=== PATIENT | male | born 2000 | race Two or more races ===

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

== ENCOUNTER 2019-01-07 11:27 | Emergency (ER) | payer OTHER, MEDICAID ==
[2019-01-07] MEDS ORDERED: METHYLPREDNISOLONE INJ 125 MG/2 ML SDV IV ONE (12:55)
[2019-01-07] MEDS ORDERED: FAMOTIDINE INJ/PF 20 MG/2 ML SDV IV ONE (12:55)
[2019-01-07] MEDS ORDERED: DIPHENHYDRAMINE HCL 50 MG/ML VIAL IV ONE (12:55)
[2019-01-07 15:08] VITALS: BP 119/62
--- NOTE | 2019-01-07 15:12 | ER Document Report ---
HPI - HPI Time Seen by Provider: 01/07/19 12:46 Pain Level: 2 Notes: Patient is an otherwise healthy 19-year-old male presented to the emergency department after being stung by a bee today. He reports he was stung to the left thigh area. He reports anaphylaxis to bee stings. He states he used his EpiPen immediately. Patient does report some mild itchiness and swelling in his throat but is speaking in full and complete sentences and is able to swallow without difficulty. Patient denies any rash or hives. - DERM Skin Color: Normal, [place] Past Medical History - Social History Smoking Status: Current Every Day Smoker Frequency of alcohol use: None Drug Abuse: None Family History: Reviewed & Not Pertinent, DM, Hypertension Patient has suicidal ideation: No Patient has homicidal ideation: No Pulmonary Medical History: Reports: Hx Asthma Neurological Medical History: Reports: Hx Migraine Renal/ Medical History: Denies: Hx Peritoneal Dialysis Psychiatric Medical History: Reports: Hx Anxiety, Hx Attention Deficit Hyperactivity Disorder, Hx Bipolar Disorder, Hx Dementia, Hx Depression - ptsd, Hx Post Traumatic Stress Disorder Past Surgical History: Reports: Hx Tonsillectomy - Immunizations Immunizations up to date: Yes Hx Diphtheria, Pertussis, Tetanus Vaccination: Yes Vertical Provider Document - CONSTITUTIONAL Notes: PHYSICAL EXAMINATION: GENERAL: Well-appearing, well-nourished and in no acute distress. HEAD: Atraumatic, normocephalic. EYES: Pupils equal round and reactive to light, extraocular movements intact, sclera anicteric, conjunctiva are normal. ENT: Nares patent, oropharynx clear without exudates. Moist mucous membranes. NECK: Normal range of motion, supple without lymphadenopathy LUNGS: Breath sounds clear to auscultation bilaterally and equal. No wheezes rales or rhonchi. HEART: Regular rate and rhythm without murmurs ABDOMEN: Soft, nontender, nondistended abdomen. No guarding, no rebound. No masses appreciated. Musculoskeletal: Normal range of motion, no pitting or edema. No cyanosis. NEUROLOGICAL: Cranial nerves grossly intact. Normal speech, normal gait. Normal sensory, motor exams PSYCH: Normal mood, normal affect. SKIN: Warm, Dry, normal turgor, no rashes or lesions noted. - INFECTION CONTROL TRAVEL OUTSIDE OF THE [place] IN LAST 30 DAYS: No Course - Re-evaluation Re-evalutation: Patient appears well, nontoxic, no hives noted, patient speaking in full complete sentences and swallowing without difficulty. Patient injected his epinephrine at 11 AM. I will treat him with Pepcid, Solu-Medrol and Benadryl. He will be monitored for a total of 4 hours from the time of the epinephrine injection which was at 11:00 this morning. He will be discharged at 3 PM if he remains asymptomatic. Patient remained in some a symptomatic while in the emergency department. He does not have any hives or wheezes. He continues to feel well and is swallowing without difficulty with a patent airway. Patient will be discharged home at this time, prescriptions written for prednisone, Pepcid and epinephrine pens. Patient's family member at bedside is present in both he and the family member verbalized understanding and agreement with plan. - Vital Signs Vital signs: Temp Pulse Resp BP Pulse Ox 97.8 F 65 16 119/62 97 01/07/19 15:06 01/07/19 15:06 01/07/19 15:06 01/07/19 15:06 01/07/19 15:06 Discharge - Discharge Clinical Impression: Allergic reaction Qualifiers: Encounter type: initial encounter Qualified Code(s): T78.40XA - Allergy, unspecified, initial encounter Condition: Stable Disposition: HOME, SELF-CARE Additional Instructions: Acute Allergic Reaction Your symptoms are due to an allergic reaction. Allergy can cause hives, swelling of the hands, feet, and face, hoarseness, and difficulty swallowing or breathing. It may be due to exposure to medication, animal dander, foods, infection, or insect bites. Medication is a common cause, even when prior use of this same medication caused no problems. Acute treatment may include adrenalin and antihistamines. Usually, the specific allergic agent can't be identified unless repeated episodes occur. Home treatment includes the following: (1) Stop any suspicious medications. This will be discussed with you. (2) Oral antihistamines for the next four to five days. Example, diphenhydramine (Benadryl) every four hours. (3) You may also use cimetidine (Tagamet), ranitidine (Zantac), or famotidine (Pepcid) every four hours if diphenhydramine is not controlling itching and hives. (4) Avoid aspirin until the hives completely disappear. (5) Avoid hot baths or showers until the hives are completely gone. Call the doctor if faintness, difficulty swallowing, tightness in the chest, or wheezing occurs. Take medications as prescribed. Be sure to continue to carry an EpiPen with you at all times. If you have to use the EpiPen please come to the emergency department as discussed. Prescriptions: Epinephrine [Epipen 2-Fahad] 0.3 mg IM ONCE PRN #1 packet PRN Reason: Famotidine [Pepcid 40 mg Tablet] 40 mg PO BID #10 tablet Prednisone [Deltasone 20 mg Tablet] 3 tab PO DAILY 5 Days #15 tablet Forms: Return to Work Referrals: SATISH MANJARREZ DO [Primary Care Provider] - Follow up as needed
== END 2019-01-07 15:32 | disposition home or self-care (01) ==
LOC: ER 11:27
DX: L29.8 Other pruritus (principal); R22.1 Localized swelling, mass and lump, neck; T78.40XA Allergy, unspecified, initial encounter; T63.441A Toxic effect of venom of bees, accidental (unintentional), initial encounter; X58.XXXA Exposure to other specified factors, initial encounter; Z91.030 Bee allergy status; F17.200 Nicotine dependence, unspecified, uncomplicated
CPT/HCPCS: 99282; 96374; 96375; J1200; J2930; S0028

== ENCOUNTER 2019-02-02 05:42 | Day surgery (SDC) | payer MEDICAID, OTHER ==
[~2019-02-02 05:42] MED LIST: ACETAMINOPHEN 325 MG TABLET ONE; ACETAMINOPHEN 325 MG TABLET PO PRN; IBUPROFEN 800 MG in NORMAL SALINE 250 ML IV PRN; LACTATED RINGERS 1000 ML IV PRN; LIDOCAINE 0.5% INJ-PF (5 MG/ML) 50 ML SDV SUBCUT PRN; PREGABALIN 50 MG CAPSULE ONE; PREGABALIN 50 MG CAPSULE PO PRN
[2019-02-02] MEDS ORDERED: MIDAZOLAM 2 MG/2 ML INJ ONE (07:18)
[2019-02-02] MEDS ORDERED: HYDROMORPHONE HCL INJ/PF 2 MG/ML AMPULE ONE (07:18)
[2019-02-02] MEDS ORDERED: FENTANYL CITRATE INJ/PF 250 MCG/5 ML AMPULE ONE (07:18)
[2019-02-02] MEDS ORDERED: PROPOFOL INJ 200 MG/20 ML VIAL IV ONE (07:18)
[2019-02-02] MEDS ORDERED: LIDOCAINE 2% INJ-PF (100 MG/5 ML) SYRINGE ONE (07:19)
[2019-02-02] MEDS ORDERED: BUPIVACAINE HCL 0.25 % INJ/PF (2.5 MG/1 ML) 30 ML VIAL ONE (07:23)
[2019-02-02] MEDS ORDERED: CEFAZOLIN INJ 1 GM VIAL ONE (07:28)
[2019-02-02] MEDS ORDERED: MEPERIDINE HCL/PF INJ 25 MG/1 ML DISP.SYRIN IV PRN (08:23)
[2019-02-02] MEDS ORDERED: FENTANYL CITRATE INJ/PF 100 MCG/2 ML AMPUL IV PRN ×3 (08:23)
[2019-02-02] MEDS ORDERED: MORPHINE SULFATE 10 MG/ML INJ IV PRN (08:23)
[2019-02-02] MEDS ORDERED: PROMETHAZINE HCL INJ 25 MG/1 ML VIAL IV PRN ×2 (08:23)
[2019-02-02] MEDS ORDERED: DIPHENHYDRAMINE HCL 50 MG/ML VIAL IV PRN (08:23)
--- NOTE | 2019-02-02 10:22 | Discharge Summary ---
Discharge Summary (SDC) - Discharge Final Diagnosis: Bilateral symptomatic inguinal hernias. Date of Surgery: 02/02/19 Discharge Date: 02/02/19 Condition: Stable Treatment or Instructions: Discharge home. Diet as tolerated. Activity: No lifting greater than 10 pounds x 4 weeks. Follow-up with me in 7 to 10 days. Okay to shower on . No tub baths or swimming pools x2 weeks. [place] 5/325 mg p.o. every 6 hours as needed for pain. Ibuprofen 800 mg p.o. 3 times daily with meals. Referrals: SATISH MANJARREZ DO [Primary Care Provider] - Discharge Diet: As Tolerated Respiratory Treatments at Home: Deep Breathing/Coughing, Incentive Spirometer Discharge Activity: No Lifting Over 10 Pounds, No Lifting/Push/Pulling Home Care Assistance: None Needed Report the Following to Your Physician Immediately: Shortness of Breath, Nausea, Vomiting, Increase in Pain, Fever over 101 Degrees, Unusual Bleeding, Redness
[2019-02-02] MEDS ORDERED: HYDROCODONE/ACETAMINOPHEN 5-325 MG TABLET PO PRN (10:24)
--- NOTE | 2019-02-02 10:28 | Operative Report ---
Nonrecallable Operative Report DATE OF SURGERY: 02/02/19 PREOPERATIVE DIAGNOSIS: Bilateral symptomatic inguinal hernias POSTOPERATIVE DIAGNOSIS: Bilateral symptomatic indirect inguinal hernias. OPERATION: Robot-assisted laparoscopic bilateral inguinal hernia repair with darion downs. SURGEON: NINFA TRAN TESTER/LIFT TRUCKER: NINI SWEET ANESTHESIA: GA TISSUE REMOVED OR ALTERED: None COMPLICATIONS: None apparent ESTIMATED BLOOD LOSS: Minimal PROCEDURE: Drains/implants: Right and left large 3 DMax inguinal hernia mesh. Procedure in detail: After informed consent was obtained, the patient was brought to the operating room and laid in the supine position. The area of the abdomen was prepped and draped in a normal sterile fashion. A supraumbilical incision was created with a 15 blade scalpel. Dissection was carried through the subcutaneous tissue to the abdominal wall. The linea alba fascia was incised sharply, the abdomen was entered sharply. The balloon trocar was inserted, and pneumoperitoneum was achieved. Two 8 mm robotic trochars were placed in the right and left lateral abdominal wall. The robot was then brought over the patient and docked appropriately. I then assumed my position at the surgeon's console. Attention was turned to the right groin. A preperitoneal dissection was undertaken. The peritoneum was incised 3 cm superior to the large right inguinal hernia defect. The preperitoneal dissection was undertaken using sharp dissection, blunt dissection, and electrocautery. The hernia sac was freed from the cord structures, taking great care not to injure the cord structures. Once the hernia sac was freed, it was everted. Next, a right-sided 3 DMax inguinal hernia mesh was placed into the preperitoneal space. It was sutured to the abdominal wall medially and superiorly using 2-0 Vicryl suture. Once this was completed, attention was turned to the left side. The left groin was opened in similar fashion. The peritoneum was scored 3 cm superior to the small left indirect inguinal hernia defect. A preperitoneal dissection was undertaken using sharp dissection, blunt dissection, and electrocautery. The hernia sac was freed from the cord structures. This was done with great care, so as not to injure the cord structures. Next a large le ft-sided 3 DMax inguinal hernia mesh was placed into the preperitoneal space. It was sutured medially and superiorly, using 2-0 Vicryl suture. Next the peritoneum was closed bilaterally using 2-0 V Lock Suture in simple running fashion. The repairs were then inspected. They were found to be in good order. Next, the robot was undocked, and I scrubbed back into the case. The trochars were removed, and pneumoperitoneum was relieved. The supraumbilical fascia was closed using 0 Vicryl suture in [id number] fashion. The overlying skin was closed using 4-0 Vicryl Rapide suture in subcuticular fashion. Dressings were placed, and the procedure was concluded. All sponge, instrument, and needle counts were correct x2. Condition: Stable. Nini Sweet PA-C was scrubbed and present the entirety of the procedure. She assisted with all portions of the procedure including placement of the trochars, opening of the abdomen, docking of the robot, exchanging of the robotic instruments, undocking of the robot, closure of the fascia, and closure of the skin.
[2019-02-02] MEDS ORDERED: FENTANYL CITRATE INJ/PF 100 MCG/2 ML AMPUL ONE (10:41)
[2019-02-02] MEDS ORDERED: HYDROCODONE/ACETAMINOPHEN 5-325 MG TABLET ONE (11:26)
[2019-02-02] MEDS ORDERED: IBUPROFEN 800 MG TABLET PO SCH (12:00)
[2019-02-02 12:36] VITALS: BP 119/78
[2019-02-02] MEDS ORDERED: ONDANSETRON HCL INJ/PF 4 MG/2 ML SDV ONE (13:56)
[2019-02-02] MEDS ORDERED: GLYCOPYRROLATE 1 MG/5 ML VIAL ONE (13:56)
[2019-02-02] MEDS ORDERED: SUCCINYLCHOLINE CHLORIDE INJ 200 MG/10 ML VIAL ONE (13:56)
[2019-02-02] MEDS ORDERED: ROCURONIUM BROMIDE INJ 50 MG/5 ML VIAL IV ONE (13:56)
[2019-02-02] MEDS ORDERED: DEXAMETHASONE SOD PHOSPHATE INJ 4 MG/1 ML VIAL ONE (13:56)
== END 2019-02-02 12:15 | disposition home or self-care (01) ==
LOC: OROUT 05:42
PROVIDERS: ATTEND Surgery
DX: K40.20 Bilateral inguinal hernia, without obstruction or gangrene, not specified as recurrent (principal); J45.909 Unspecified asthma, uncomplicated; Z79.899 Other long term (current) drug therapy
CPT/HCPCS: 49650; S2900; 36415; 840; 86850; 86900; 86901; C1781; J0330; J0690; J1100; J1170; J1741; J2001; J2250; J2405; J2704; J3010; J3490; J7050

== ENCOUNTER 2019-03-31 17:35 | Emergency (ER) | payer MEDICAID ==
--- NOTE | 2019-03-31 19:53 | RADIOLOGY REPORT (SQ) ---
EXAM DESCRIPTION: CHEST 2 VIEWS COMPLETED DATE/TIME: 03/31/2019 7:35 pm REASON FOR STUDY: cough, SOB for one month COMPARISON: 09/11/2013 EXAM PARAMETERS: NUMBER OF VIEWS: two views TECHNIQUE: Digital Frontal and Lateral radiographic views of the chest acquired. RADIATION DOSE: NA LIMITATIONS: none FINDINGS: LUNGS AND PLEURA: No opacities, masses or pneumothorax. No pleural effusion. MEDIASTINUM AND HILAR STRUCTURES: No masses or contour abnormalities. HEART AND VASCULAR STRUCTURES: Heart normal size. No evidence for failure. BONES: No acute findings. HARDWARE: None in the chest. OTHER: No other significant finding. IMPRESSION: NO ACUTE RADIOGRAPHIC FINDING IN THE CHEST. TECHNICAL DOCUMENTATION: JOB ID: [id number] [employer]- All Rights Reserved Reading location - IP/workstation name: [email or web address]
--- NOTE | 2019-03-31 20:33 | ER Document Report ---
ED Medical Screen (RME) - General Chief Complaint: Shortness Of Breath Stated Complaint: SHORTNESS OF BREATH Time Seen by Provider: 03/31/19 20:26 Primary Care Provider: SATISH MANJARREZ DO [Primary Care Provider] - Follow up as needed TRAVEL OUTSIDE OF THE [place] IN LAST 30 DAYS: No - HPI Notes: 03/31/19 20:31 19 year old male to the ED with C/O palpitations, SOB, feeling like his heart is stopping off and on over the past month. Sometime he feels like his heart is going to pump out of his chest. Denies fevers, chills, wheezing, cough. Is taking Waggoner and his last Waggoner level one month ago was normal. He has not had a change in his dosage. I performed a medical screening exam on the patient and have determined he needs further assessment with lab work, EKG, and chest XR as well as further management by main side provider. - Related Data Allergies/Adverse Reactions: escitalopram oxalate [From [email or web address]] Adverse Reaction (Verified 02/02/19 06:26) bee stings Allergy (Uncoded 02/01/19 10:23) wasps Allergy (Uncoded 02/01/19 10:23) Past Medical History - Past Medical History Cardiac Medical History: Denies: Hx Coronary Artery Disease, Hx Heart Attack, Hx Hypertension Pulmonary Medical History: Reports: Hx Asthma Denies: Hx Bronchitis, Hx COPD - proair prn, Hx Pneumonia Neurological Medical History: Reports: Hx Migraine. Denies: Hx Cerebrovascular Accident, Hx Seizures Renal/ Medical History: Denies: Hx Peritoneal Dialysis Musculoskeltal Medical History: Denies Hx Arthritis Psychiatric Medical History: Reports: Hx Anxiety, Hx Attention Deficit Hyperactivity Disorder, Hx Bipolar Disorder, Hx Dementia, Hx Depression - ptsd, Hx Post Traumatic Stress Disorder Past Surgical History: Reports: Hx Tonsillectomy - Immunizations Immunizations up to date: Yes Hx Diphtheria, Pertussis, Tetanus Vaccination: Yes Physical Exam - Vital signs Vitals: Temp Pulse Resp BP Pulse Ox 97.7 F 95 18 122/72 98 03/31/19 17:48 03/31/19 17:48 03/31/19 17:48 03/31/19 17:48 03/31/19 17:48 Course - Vital Signs Vital signs: Temp Pulse Resp BP Pulse Ox 97.7 F 95 18 122/72 98 03/31/19 17:48 03/31/19 17:48 03/31/19 17:48 03/31/19 17:48 03/31/19 17:48 Doctor's Discharge - Discharge Referrals: SATISH MANJARREZ DO [Primary Care Provider] - Follow up as needed
--- NOTE | 2019-03-31 21:55 | EKG REPORT ---
SEVERITY:- NORMAL ECG - SINUS RHYTHM : Confirmed by: Kaiser Anderson MD 31-Mar-2019 21:54:29
[2019-03-31 23:31] LABS: ABSOLUTE BASOPHILS # (AUTO) 0.1 10^3/uL (0.0-0.2); ABSOLUTE EOSINOPHILS # (AUTO) 0.6 10^3/uL (0.0-0.6); ABSOLUTE LYMPHOCYTES (AUTO) 2.4 10^3/uL (0.5-4.7); ABSOLUTE MONOCYTES (AUTO) 0.7 10^3/uL (0.1-1.4); ABSOLUTE NEUT (AUTO) 5.9 10^3/uL (1.7-8.2); EOSINOPHILS % (AUTO) 6.4 % (0-6); HEMOGLOBIN 15.3 g/dL (13.5-17.0); LYMPHOCYTES % (AUTO) 24.4 % (13-45); MEAN CORPUSCULAR HEMOGLOBIN 31.5 pg (27.0-33.4); MEAN CORPUSCULAR VOLUME 93 fl (80-97); MONOCYTES % (AUTO) 7.6 % (3-13); PLATELET COUNT 217 10^3/uL (150-450); RED BLOOD COUNT 4.85 10^6/uL (4.35-5.55); RED CELL DISTRIBUTION WIDTH 13.1 % (11.5-14.0); SEGMENTED NEUTROPHILS % (AUTO) 60.6 % (42-78); TOTAL CELLS COUNTED % (AUTO) 100 %; WHITE BLOOD COUNT 9.7 10^3/uL (4.0-10.5)
[2019-03-31 23:44] LABS: ALBUMIN 4.6 g/dL (3.5-5.0); ALKALINE PHOSPHATASE 70 U/L (38-126); ANION GAP 12 (5-19); ASPARTATE AMINO TRANSFERASE 21 U/L (17-59); BILIRUBIN,DIRECT 0.2 mg/dL (0.0-0.4); BILIRUBIN,TOTAL 0.3 mg/dL (0.2-1.3); BLOOD UREA NITROGEN 11 mg/dL (7-20); CALCIUM 9.9 mg/dL (8.4-10.2); CARBON DIOXIDE 20 mmol/L (22-30); CHLORIDE 106 mmol/L (98-107); GLUCOSE 104 mg/dL (75-110); LITHIUM 0.8 mEq/L (0.6-1.2); POTASSIUM 3.9 mmol/L (3.6-5.0); TOTAL PROTEIN 7.6 g/dL (6.3-8.2)
--- NOTE | 2019-04-01 00:30 | ER Document Report ---
ED General - General Chief Complaint: Shortness Of Breath Stated Complaint: SHORTNESS OF BREATH Time Seen by Provider: 03/31/19 20:26 Primary Care Provider: SATISH MANJARREZ DO [Primary Care Provider] - Follow up as needed (Follow-up in 1 week if symptoms are not improving with medications provided) TRAVEL OUTSIDE OF THE [place] IN LAST 30 DAYS: No - HPI Notes: Patient presents with feeling short of breath with walking and exercise. He has several psych issues but denies any history of any cardiac issues. He does have a history of asthma as a child but does not use any albuterol. No recent cough congestion or fevers. - Related Data Allergies/Adverse Reactions: escitalopram oxalate [From [employer]] Adverse Reaction (Verified 02/02/19 06:26) bee stings Allergy (Uncoded 02/01/19 10:23) wasps Allergy (Uncoded 02/01/19 10:23) Past Medical History - Social History Smoking Status: Unknown if Ever Smoked Family History: Reviewed & Not Pertinent, DM, Hypertension Patient has suicidal ideation: No Patient has homicidal ideation: No - Past Medical History Cardiac Medical History: Denies: Hx Coronary Artery Disease, Hx Heart Attack, Hx Hypertension Pulmonary Medical History: Reports: Hx Asthma Denies: Hx Bronchitis, Hx COPD - proair prn, Hx Pneumonia Neurological Medical History: Reports: Hx Migraine. Denies: Hx Cerebrovascular Accident, Hx Seizures Renal/ Medical History: Denies: Hx Peritoneal Dialysis Musculoskeletal Medical History: Denies Hx Arthritis Psychiatric Medical History: Reports: Hx Anxiety, Hx Attention Deficit Hyperactivity Disorder, Hx Bipolar Disorder, Hx Dementia, Hx Depression - ptsd, Hx Post Traumatic Stress Disorder Past Surgical History: Reports: Hx Tonsillectomy - Immunizations Immunizations up to date: Yes Hx Diphtheria, Pertussis, Tetanus Vaccination: Yes Review of Systems - Review of Systems Constitutional: No symptoms reported EENT: No symptoms reported Cardiovascular: No symptoms reported Respiratory: See HPI Gastrointestinal: No symptoms reported Genitourinary: No symptoms reported Male Genitourinary: No symptoms reported Musculoskeletal: No symptoms reported Skin: No symptoms reported Hematologic/Lymphatic: No symptoms reported Neurological/Psychological: No symptoms reported Physical Exam - Vital signs Vitals: Temp Pulse Resp BP Pulse Ox 97.7 F 95 18 122/72 98 03/31/19 17:48 03/31/19 17:48 03/31/19 17:48 03/31/19 17:48 03/31/19 17:48 - General General appearance: Appears well, Alert - HEENT Head: Normocephalic, Atraumatic Eyes: Normal Conjunctiva: Normal Cornea: Normal Extraocular movements intact: Yes Pupils: PERRL - Respiratory Respiratory status: No respiratory distress Chest status: Nontender Breath sounds: Normal Chest palpation: Normal - Cardiovascular Rhythm: Regular Heart sounds: Normal auscultation Murmur: No - Abdominal Inspection: Normal Distension: No distension Bowel sounds: Normal Tenderness: Nontender Course - Re-evaluation Re-evalutation: 04/01/19 00:28 Labs within normal limits are nonsignificant with no concerning findings on EKG chest x-ray shows no concerning or acute findings. Patient does have history of asthma as a child does not use albuterol puffer will provide puffer tonight they are to use this when he feels short time with walking or exertion. If his symptoms are not improving with this and he is to follow-up with his primary care doctor for reevaluation. - Vital Signs Vital signs: Temp Pulse Resp BP Pulse Ox 97.7 F 95 18 122/72 98 03/31/19 17:48 03/31/19 17:48 03/31/19 17:48 03/31/19 17:48 03/31/19 17:48 - Laboratory Result Diagrams: 03/31/19 23:17 03/31/19 23:17 Laboratory results interpreted by me: 03/31/19 03/31/19 23:17 23:17 Eos % (Auto) 6.4 H Carbon Dioxide 20 L - Diagnostic Test Radiology reviewed: Reports reviewed - EKG Interpretation by Pr EKG shows normal: Sinus rhythm Rate: Normal Rhythm: NSR - Normal axis and intervals no concerning ST depressions or elevations Discharge - Discharge Clinical Impression: Shortness of breath Condition: Good Disposition: HOME, SELF-CARE Instructions: Asthma ([facility]) Prescriptions: Albuterol Sulfate [Proair HFA Inhalation Aerosol 8.5 gm MDI] 2 puff IH Q4H PRN #1 mdi PRN Reason: Referrals: SATISH MANJARREZ DO [Primary Care Provider] - Follow up as needed (Follow-up in 1 week if symptoms are not improving with medications provided)
[2019-04-01 00:37] VITALS: BP 127/66
== END 2019-04-01 00:47 | disposition home or self-care (01) ==
LOC: ER 17:35
DX: R06.02 Shortness of breath (principal); J45.909 Unspecified asthma, uncomplicated
CPT/HCPCS: 36415; 71046; 80053; 80178; 83735; 84443; 84484; 85025; 93005; 93010; 99285

== ENCOUNTER → 2020-02-16 | Outpatient (CLI) | payer MEDICAID ==
[2020-02-16 09:32] LABS: ABSOLUTE BASOPHILS # (AUTO) 0.1 10^3/uL (0.0-0.2); ABSOLUTE EOSINOPHILS # (AUTO) 0.5 10^3/uL (0.0-0.6); ABSOLUTE LYMPHOCYTES (AUTO) 1.5 10^3/uL (0.5-4.7); ABSOLUTE MONOCYTES (AUTO) 0.5 10^3/uL (0.1-1.4); ABSOLUTE NEUT (AUTO) 4.3 10^3/uL (1.7-8.2); BASOPHILS % (AUTO) 0.8 % (0-2); EOSINOPHILS % (AUTO) 7.3 % (0-6); HEMOGLOBIN 15.4 g/dL (13.5-17.0); LYMPHOCYTES % (AUTO) 21.5 % (13-45); MEAN CORPUSCULAR HEMOGLOBIN 31.2 pg (27.0-33.4); MEAN CORPUSCULAR HGB CONC 34.2 g/dL (32.0-36.0); MEAN CORPUSCULAR VOLUME 91 fl (80-97); MONOCYTES % (AUTO) 7.2 % (3-13); PLATELET COUNT 208 10^3/uL (150-450); RED BLOOD COUNT 4.93 10^6/uL (4.35-5.55); RED CELL DISTRIBUTION WIDTH 13.1 % (11.5-14.0); SEGMENTED NEUTROPHILS % (AUTO) 63.2 % (42-78); TOTAL CELLS COUNTED % (AUTO) 100 %; WHITE BLOOD COUNT 6.8 10^3/uL (4.0-10.5)
[2020-02-16 09:52] LABS: ALBUMIN 4.5 g/dL (3.5-5.0); ALKALINE PHOSPHATASE 70 U/L (38-126); ANION GAP 10 (5-19); ASPARTATE AMINO TRANSFERASE 25 U/L (17-59); BILIRUBIN,TOTAL 0.5 mg/dL (0.2-1.3); BLOOD UREA NITROGEN 14 mg/dL (7-20); CALCIUM 9.9 mg/dL (8.4-10.2); CARBON DIOXIDE 22 mmol/L (22-30); CHLORIDE 107 mmol/L (98-107); CHOLESTEROL 197.76 mg/dL (0-200); GLUCOSE 117 mg/dL (75-110); LITHIUM 0.7 mEq/L (0.6-1.2); POTASSIUM 4.2 mmol/L (3.6-5.0); TOTAL PROTEIN 7.9 g/dL (6.3-8.2); TRIGLYCERIDES 124 mg/dL (<150)
[2020-02-16 10:03] LABS: DIRECT LDL 143 mg/dL (<100)
[2020-02-16 10:09] LABS: FREE T4 (FREE THYROXINE) 0.79 ng/dL (0.78-2.19)
[2020-02-16 10:23] LABS: THYROID STIMULATING HORMONE 7.05 uIU/mL (0.47-4.68)
== END ==
LOC: OD 09:07
PROVIDERS: ATTEND Nurse Practitioner Psychiatric/Mental Health
DX: F31.9 Bipolar disorder, unspecified (principal); Z79.899 Other long term (current) drug therapy
CPT/HCPCS: 36415; 80053; 80061; 80178; 83036; 84439; 84443; 85025

== ENCOUNTER 2020-02-18 13:17 | Emergency (ER) | payer MEDICAID ==
[2020-02-18 13:26] VITALS: BP 132/79
[2020-02-18] MEDS ORDERED: IBUPROFEN 600 MG TABLET PO ONE (14:21)
[2020-02-18] MEDS ORDERED: ACETAMINOPHEN 325 MG TABLET PO ONE (14:21)
--- NOTE | 2020-02-18 14:27 | ER Document Report ---
HPI - HPI Time Seen by Provider: 02/18/20 14:16 Context: Patient is a 20-year-old male who presents emergency department with a chief complaint of right knee pain. Patient states that he was carrying a box and he felt it was to pink and when box was leaning over he did not want to box fall on top of his mom and he ended up falling over. Patient states that when he fell over he he felt his knee move in and out. States that he is not able to walk on it. He is able to move his toes. Denies any numbness or tingling. - ROS Systems Reviewed and Negative: Yes All other systems reviewed and negative - CONSTITUTIONAL Constitutional: DENIES: Fever, Chills - RESPIRATORY Respiratory: DENIES: Trouble Breathing, Coughing - GASTROINTESTINAL Gastrointestinal: DENIES: Abdominal Pain, Nausea, Patient vomiting - MUSCULOSKELETAL Musculoskeletal: REPORTS: Extremity pain - Right knee. DENIES: Back Pain - DERM Skin Color: Normal, [place] Past Medical History - General Information source: Patient - Social History Smoking Status: Unknown if Ever Smoked Family History: Reviewed & Not Pertinent, DM, Hypertension - Past Medical History Cardiac Medical History: Denies: Hx Coronary Artery Disease, Hx Heart Attack, Hx Hypertension Pulmonary Medical History: Reports: Hx Asthma Denies: Hx Bronchitis, Hx COPD - proair prn, Hx Pneumonia Neurological Medical History: Reports: Hx Migraine. Denies: Hx Cerebrovascular Accident, Hx Seizures Renal/ Medical History: Denies: Hx Peritoneal Dialysis Musculoskeletal Medical History: Denies Hx Arthritis Psychiatric Medical History: Reports: Hx Anxiety, Hx Attention Deficit Hyperactivity Disorder, Hx Bipolar Disorder, Hx Dementia, Hx Depression - ptsd, Hx Post Traumatic Stress Disorder Past Surgical History: Reports: Hx Tonsillectomy - Immunizations Immunizations up to date: Yes Hx Diphtheria, Pertussis, Tetanus Vaccination: Yes Vertical Provider Document - CONSTITUTIONAL Agree With Documented VS: Yes Exam Limitations: No Limitations General Appearance: No Apparent Distress - INFECTION CONTROL TRAVEL OUTSIDE OF THE [place] IN LAST 30 DAYS: No - HEENT HEENT: Atraumatic, Normocephalic, PERRLA - NECK Neck: Normal Inspection - RESPIRATORY Respiratory: No Respiratory Distress - CARDIOVASCULAR Cardiovascular: Regular Rate, Regular Rhythm Pulses: Normal: Posterior tibial, Dorsalis pedis - MUSCULOSKELETAL/EXTREMETIES Musculoskeletal/Extremeties: Tender - Right knee and proximal tibia and fibula, No Edema. negative: FROM - Decreased to right knee - NEURO Level of Consciousness: Awake, Alert, Appropriate Motor/Sensory: No Sensory Deficit - DERM Integumentary: Warm, Dry, No Rash Course - Re-evaluation Re-evalutation: 02/18/20 15:46 Patient's x-ray is unremarkable. No fracture noted. Capillary refill less than 3 seconds. Dorsalis pedis and posterior tibial pulses 2+. No vascular compromise noted. Patient will be given crutches, an Jose wrap, and a knee immobilizer to help with his knee. Advised him to take ibuprofen and Tylenol for pain relief. He is in agreement with this plan. Follow-up precautions were given. Verbal discharge instructions were given to the patient. They verbalized understanding. They are stable for discharge. - Vital Signs Vital signs: Temp Pulse Resp BP Pulse Ox 98.7 F 97 18 132/79 H 97 02/18/20 13:25 02/18/20 13:25 02/18/20 13:25 02/18/20 13:25 02/18/20 13:25 Discharge - Discharge Clinical Impression: Right knee pain Qualifiers: Chronicity: acute Qualified Code(s): M25.561 - Pain in right knee Condition: Stable Disposition: HOME, SELF-CARE Additional Instructions: You were seen today in the emergency department for knee pain. Your x-ray did not show any broken bones. Wear the knee immobilizer and Jose wrap to help you with comfort. Use the crutches to get around. Take ibuprofen 600 mg and acetaminophen 1000 mg every 6 hours for your pain. Follow-up with your primary care provider. Forms: Return to Work Referrals: SATISH MANJARREZ DO [Primary Care Provider] - Follow up in 3-5 days
--- NOTE | 2020-02-18 15:08 | RADIOLOGY REPORT (SQ) ---
EXAM DESCRIPTION: TIBIA FIBULA RIGHT IMAGES COMPLETED DATE/TIME: 02/18/2020 2:46 pm REASON FOR STUDY: leg pain COMPARISON: None. NUMBER OF VIEWS: Two views. TECHNIQUE: Two radiographic images acquired of the right tibia and fibula to include the knee and an kle in at least one projection. LIMITATIONS: None. FINDINGS: MINERALIZATION: Normal. BONES: No acute fracture or dislocation. No worrisome bone lesions. SOFT TISSUES: No obvious swelling or foreign body. OTHER: No other significant finding. IMPRESSION: NEGATIVE STUDY OF THE RIGHT TIBIA AND FIBULA. NO RADIOGRAPHIC EVIDENCE OF ACUTE INJURY. TECHNICAL DOCUMENTATION: JOB ID: [id number] 2010 [employer]- All Rights Reserved Reading location - IP/workstation name: [email or web address]
--- NOTE | 2020-02-18 15:09 | RADIOLOGY REPORT (SQ) ---
EXAM DESCRIPTION: KNEE RIGHT 4 VIEWS IMAGES COMPLETED DATE/TIME: 02/18/2020 2:46 pm REASON FOR STUDY: fall; knee pain COMPARISON: None. NUMBER OF VIEWS: Four views. TECHNIQUE: AP, lateral, and both oblique radiographic images acquired of the right knee. LIMITATIONS: None. FINDINGS: MINERALIZATION: Normal. BONES: No acute fracture or dislocation. No worrisome bone lesions. JOINT: No effusion. SOFT TISSUES: No soft tissue swelling. No radio-opaque foreign body. OTHER: No other significant finding. IMPRESSION: NEGATIVE STUDY OF THE RIGHT KNEE. NO RADIOGRAPHIC EVIDENCE OF ACUTE INJURY. TECHNICAL DOCUMENTATION: JOB ID: [id number] 2010 [employer]- All Rights Reserved Reading location - IP/workstation name: [email or web address]
== END 2020-02-18 16:05 | disposition home or self-care (01) ==
LOC: ER 13:17
DX: M25.561 Pain in right knee (principal)
CPT/HCPCS: 99283; 73564; 73590; J3490 ×2

== ENCOUNTER → 2020-05-19 | Outpatient (CLI) | payer MEDICAID | LOC: OD 09:17 | PROVIDERS: ATTEND Nurse Practitioner Psychiatric/Mental Health | DX: F31.9 Bipolar disorder, unspecified (principal); Z79.899 Other long term (current) drug therapy | CPT/HCPCS: 36415; 84436; 84443 ==

== ENCOUNTER → 2020-07-27 | Outpatient (CLI) | payer MEDICAID | LOC: OD 09:21 | PROVIDERS: ATTEND Nurse Practitioner Psychiatric/Mental Health | DX: F31.9 Bipolar disorder, unspecified (principal) | CPT/HCPCS: 36415; 80164; 84450; 84460 ==